=== PATIENT | male | born 1970 | race Caucasian/White ===

== ENCOUNTER 2023-09-14 16:10 | Emergency (ER) | payer SELFPAY ==
[2023-09-14] MEDS: Lidocaine 1% with EPINEPHrine 1:100,000 20 ML MDV INJECT ONE (17:14)
[2023-09-14] MEDS: Lidocaine 1% with EPINEPHrine 1:100,000 50 ML MDV INFILT ONE (17:17)
[2023-09-14] MEDS: Bacitracin Oint 1 GM U/D Packet TOP ONE (17:38)
[2023-09-14] MEDS ORDERED: Amoxicillin 500 MG Cap ONE (17:45)
[2023-09-14 18:00] VITALS: BP 155/102; PULSE 62
== END 2023-09-14 17:55 | disposition home or self-care (01) ==
LOC: LB.ED 16:10
DX: S61.421A Laceration with foreign body of right hand, initial encounter (principal); F17.210 Nicotine dependence, cigarettes, uncomplicated; E03.9 Hypothyroidism, unspecified; I10 Essential (primary) hypertension; W31.89XA Contact with other specified machinery, initial encounter; Y92.59 Other trade areas as the place of occurrence of the external cause
CPT/HCPCS: 12002; 12042; 99282; A9270-GY